=== PATIENT | female | born 1985 | race Caucasian/White ===

== ENCOUNTER 2021-01-23 08:45 | Inpatient (IN) | payer OTHER ==
[~2021-01-23] VITALS: Ht 175.3 cm; Wt 89.1 kg
[2021-01-23] MEDS: LACTATED RINGERS 1,000 ML IV SCH ×2 (09:15→13:22)
[2021-01-23] MEDS ORDERED: METF500T17 PO (09:16)
[2021-01-23] MEDS ORDERED: PREN1TAB60 PO (09:16)
[2021-01-23] MEDS ORDERED: ASPI81TA59 PO (09:16)
[2021-01-23] MEDS ORDERED: D5%-LACTATED RINGERS 1,000 ML IV SCH (09:30)
[2021-01-23] MEDS ORDERED: OXYTOCIN 30U/ 0.9% NaCL 500ML 500 ML IV ONE (09:30)
[2021-01-23] MEDS ORDERED: TERBUTALINE 1 MG/ML, 1ML SQ PRN (09:30)
[2021-01-23] MEDS ORDERED: MISOPROSTOL 25 MCG TABLET VG PRN (09:30)
[2021-01-23] MEDS ORDERED: TERBUTALINE 1 MG/ML, 1ML IVPush PRN (09:30)
[2021-01-23] MEDS ORDERED: FENTANYL PF 100 MCG/2ML IVPush PRN (09:30)
[2021-01-23] MEDS ORDERED: ONDANSETRON 2MG/ML, 2ML IVPush PRN (09:30)
[2021-01-23] MEDS ORDERED: OXYTOCIN 30U/ 0.9% NaCL 500ML 500 ML IV PRN (09:30)
[2021-01-23 09:48] LABS: BASOPHILS % (AUTO) 1 % (0-1); EOSINOPHILS % (AUTO) 1 % (1-7); LYMPHOCYTES % (AUTO) 15 % (22-44); MEAN CORPUSCULAR HEMOGLOBIN 30.4 pg (27.0-34.8); MEAN CORPUSCULAR HGB CONC 33.8 g/dL (32.4-35.8); MEAN PLATELET VOLUME 10.9 fL (7.4-10.4); MONOCYTES % (AUTO) 8 % (2-9); NEUTROPHILS % (AUTO) 76 % (42-75); PLATELET COUNT 140 x10^3/uL (130-400); RED BLOOD COUNT 3.74 x10^6/uL (3.82-5.3); RED CELL DISTRIBUTION WIDTH 12.8 % (9.6-15.2)
[2021-01-23] MEDS ORDERED: NEWBORN KIT ONE (10:41)
[2021-01-23] MEDS ORDERED: LIDOCAINE 1%, 20ML ONE (10:41)
[2021-01-23] MEDS ORDERED: MISOPROSTOL 200 MCG TABLET ONE (10:42)
[2021-01-23] MEDS ORDERED: FENTANYL/BUPIV./NS/PF 250 ML EPIDCONT ONE (13:56)
[2021-01-23] MEDS ORDERED: BUPIVACAINE 0.25% ONE (13:57)
[2021-01-23] MEDS ORDERED: EPHEDRINE 50 MG/ML, 1ML IVPush PRN (14:00)
[2021-01-23] MEDS ORDERED: FENTANYL/BUPIV./NS/PF 250 ML EPIDCONT SCH (14:00)
[2021-01-23] MEDS ORDERED: NALOXONE 0.4 MG/ML, 1ML IVPush PRN (14:00)
[2021-01-23] MEDS ORDERED: LACTATED RINGERS 1,000 ML IVBOLUS PRN (14:00)
[2021-01-23] MEDS ORDERED: LACTATED RINGERS 1,000 ML IV SCH (14:00)
[2021-01-23] MEDS ORDERED: IBUPROFEN 600 MG TABLET ONE (18:57)
[2021-01-23] MEDS: IBUPROFEN 600 MG TABLET PO PRN (19:00)
[2021-01-23] MEDS ORDERED: OXYcodone/APAP 5/325MG TABLET PO PRN ×2 (19:30)
[2021-01-23] MEDS ORDERED: ACETAMINOPHEN 325 MG TABLET PO PRN (19:30)
[2021-01-23] MEDS ORDERED: DOCUSATE 100 MG CAPSULE PO PRN (19:30)
[2021-01-23] MEDS: OXYTOCIN 30U/ 0.9% NaCL 500ML 500 ML IV SCH (19:30)
[2021-01-23] MEDS ORDERED: METHYLERGONOVINE 0.2 MG/ML IM PRN (19:30)
[2021-01-23] MEDS ORDERED: ONDANSETRON 2MG/ML, 2ML IV PRN (19:30)
[2021-01-23] MEDS ORDERED: SIMETHICONE 80 MG CHEW TAB PO PRN (19:30)
[2021-01-23] MEDS ORDERED: MISOPROSTOL 200 MCG TABLET PR PRN (19:30)
[2021-01-23] MEDS ORDERED: CARBOPROST TROMETHAMINE 250 MCG/ML, 1ML IM PRN (19:30)
[2021-01-23] MEDS ORDERED: OXYTOCIN 10 UNITS/ML, 1ML IM PRN (19:30)
[2021-01-23 21:30] VITALS: BP 112/71
[2021-01-24 01:25] VITALS: BP 120/76
[2021-01-24] MEDS: IBUPROFEN 600 MG TABLET PO PRN ×3 (01:43→12:59)
[2021-01-24 03:03] LABS: BASOPHILS % (AUTO) 0 % (0-1); EOSINOPHILS % (AUTO) 1 % (1-7); LYMPHOCYTES % (AUTO) 11 % (22-44); MEAN CORPUSCULAR HEMOGLOBIN 31.2 pg (27.0-34.8); MEAN CORPUSCULAR HGB CONC 34.3 g/dL (32.4-35.8); MEAN PLATELET VOLUME 11.1 fL (7.4-10.4); MONOCYTES % (AUTO) 6 % (2-9); NEUTROPHILS % (AUTO) 83 % (42-75); PLATELET COUNT 134 x10^3/uL (130-400); RED BLOOD COUNT 3.41 x10^6/uL (3.82-5.3); RED CELL DISTRIBUTION WIDTH 13.2 % (9.6-15.2)
[2021-01-24] MEDS: OXYTOCIN 30U/ 0.9% NaCL 500ML 500 ML IV SCH ×2 (05:30→15:30)
[2021-01-24 08:28] VITALS: BP 110/58
[2021-01-24] MEDS ORDERED: PRENATAL VIT/IRON/FA 1 EACH TABLET PO SCH (09:00)
[2021-01-24 12:34] VITALS: BP 114/55
[2021-01-24] MEDS ORDERED: IBUP-1222 PO (16:11)
[2021-01-24] MEDS ORDERED: DOCU-131 PO (16:12)
[2021-01-24] MEDS ORDERED: OXYC1TAB12 PO (16:13)
[2021-01-24 16:41] VITALS: BP 126/85
[2021-03-19] MEDS ORDERED: METF850T10 PO (09:20)
[2021-03-19] MEDS ORDERED: POLY17PO5 PO (09:20)
[2021-03-19] MEDS ORDERED: magnesium citrate PO (09:20)
[2021-03-19] MEDS ORDERED: L.AC1CAP6 PO (09:20)
[2021-03-19] MEDS ORDERED: PSYL368P33 PO (09:20)
[2021-03-19] MEDS ORDERED: SENN1TAB68 PO (09:20)
[2021-03-19] MEDS ORDERED: TRIA15CR53 TP (09:20)
[2021-03-19] MEDS ORDERED: sunflower lecithin PO (09:20)
== END 2021-01-24 18:44 | disposition home or self-care (01) | DRG 807 ==
LOC: LDIP 09:05 → 2NE 21:00 → 2NW 01-24 05:21
PROVIDERS: ADMIT Obstetrics & Gynecology; ATTEND Obstetrics & Gynecology
PROC: 10E0XZZ Delivery of Products of Conception, External Approach (ICD-10-PCS; principal; 2021-01-23)
PROC: 3E033VJ Introduction of Other Hormone into Peripheral Vein, Percutaneous Approach (ICD-10-PCS; 2021-01-23)
PROC: 3E0P7VZ Introduction of Hormone into Female Reproductive, Via Natural or Artificial Opening (ICD-10-PCS; 2021-01-23)
PROC: 10907ZC Drainage of Amniotic Fluid, Therapeutic from Products of Conception, Via Natural or Artificial Opening (ICD-10-PCS; 2021-01-23)
DX: O76 Abnormality in fetal heart rate and rhythm complicating labor and delivery (principal); Z37.0 Single live birth; O75.89 Other specified complications of labor and delivery; Z20.822 Contact with and (suspected) exposure to COVID-19; E28.2 Polycystic ovarian syndrome; Q97 Other sex chromosome abnormalities, female phenotype, not elsewhere classified; Z3A.39 39 weeks gestation of pregnancy; Z90.49 Acquired absence of other specified parts of digestive tract
CPT/HCPCS: 36415; 85025; 86592; 86850; 86900; 87635; G0378; J2405; J2590; J7120

== ENCOUNTER → 2021-03-19 | Outpatient (CLI) | payer OTHER ==
[~2021-03-19] MED LIST: ASPI81TA59 PO; DOCU-131 PO; IBUP-1222 PO; L.AC1CAP6 PO; METF500T17 PO; METF850T10 PO; OXYC1TAB14 PO; POLY17PO5 PO; PREN1TAB60 PO; PSYL368P33 PO; SENN1TAB68 PO; TRIA15CR53 TP; magnesium citrate PO; sunflower lecithin PO
[2021-03-19 09:42] LABS: BASOPHILS % (AUTO) 1 % (0-1); EOSINOPHILS % (AUTO) 3 % (1-7); LYMPHOCYTES % (AUTO) 26 % (22-44); MEAN CORPUSCULAR HEMOGLOBIN 29.5 pg (27.0-34.8); MEAN CORPUSCULAR HGB CONC 33.2 g/dL (32.4-35.8); MEAN PLATELET VOLUME 9.7 fL (7.4-10.4); MONOCYTES % (AUTO) 7 % (2-9); NEUTROPHILS % (AUTO) 63 % (42-75); PLATELET COUNT 217 x10^3/uL (130-400); RED BLOOD COUNT 4.71 x10^6/uL (3.82-5.3); RED CELL DISTRIBUTION WIDTH 13.5 % (9.6-15.2)
[2021-03-19 09:54] LABS: ANION GAP 5 mmol/L (5-15); CALCIUM 10.1 mg/dL (8.5-10.1); CHLORIDE 106 mmol/L (98-107); CREATININE 0.93 mg/dL (0.55-1.02)
== END | disposition home or self-care (01) ==
LOC: STAR 08:52
PROVIDERS: ATTEND Obstetrics & Gynecology
DX: Z01.818 Encounter for other preprocedural examination (principal)
CPT/HCPCS: 36415; 80048; 84703; 85025

== ENCOUNTER 2021-03-26 07:10 | Day surgery (SDC) | payer OTHER ==
[~2021-03-26] VITALS: Ht 175.3 cm; Wt 77.5 kg
[~2021-03-26 07:10] MED LIST changes: +OXYC1TAB12 PO; -OXYC1TAB14 PO
[2021-03-26] MEDS ORDERED: BUPIVACAINE/PF 0.25% ONE (07:11)
[2021-03-26] MEDS ORDERED: EPINEPHRINE 1 MG/ML, 1ML ONE (07:12)
[2021-03-26 07:55] VITALS: BP 111/79
[2021-03-26] MEDS ORDERED: CHLORHEXIDINE 15 ML UDC PO ONE (08:00)
[2021-03-26] MEDS ORDERED: LACTATED RINGERS 1,000 ML IV SCH (08:00)
[2021-03-26 08:17] LABS: HCG UR SG 1.023 (1.003-1.030)
[2021-03-26] MEDS ORDERED: MIDAZOLAM 1 MG/ML, 2ML ONE (08:44)
[2021-03-26] MEDS ORDERED: FENTANYL PF 100 MCG/2ML ONE ×2 (08:45→09:28)
[2021-03-26] MEDS ORDERED: PROPOFOL 100 ML ONE (09:03)
[2021-03-26] MEDS ORDERED: FENTANYL PF 100 MCG/2ML IV PRN (09:30)
[2021-03-26] MEDS ORDERED: PROMETHAZINE 25 MG/ML, 1ML IVPush PRN (09:30)
[2021-03-26] MEDS ORDERED: PROMETHAZINE 25 MG SUPP PR PRN (09:30)
[2021-03-26] MEDS ORDERED: MEPERIDINE/PF 25MG/0.5ML IVPush PRN (09:30)
[2021-03-26] MEDS ORDERED: HALOPERIDOL 5 MG/ML IV PRN (09:30)
[2021-03-26] MEDS ORDERED: METHOCARBAMOL 1,000 MG in DEXTROSE 5% 100 ML IV PRN (09:30)
[2021-03-26] MEDS ORDERED: OXYcodone 5 MG/5 ML ORAL.SOL UDC PO PRN (09:30)
[2021-03-26] MEDS ORDERED: DIPHENHYDRAMINE 50 MG/ML, 1ML IVPush PRN (09:30)
[2021-03-26] MEDS ORDERED: HYDROmorphone 1 MG/ML, 1ML INJ IVPush PRN (09:30)
[2021-03-26] MEDS ORDERED: LORazepam 2 MG/ML, 1ML IVPush PRN (09:30)
[2021-03-26] MEDS ORDERED: ONDANSETRON 2MG/ML, 2ML IVPush ONE (09:30)
[2021-03-26] MEDS ORDERED: ACETAMINOPHEN 325 MG TABLET PO PRN (09:30)
[2021-03-26] MEDS ORDERED: KETOROLAC 30 MG/1 ML ONE (09:36)
[2021-03-26] MEDS ORDERED: DEXAMETHASONE 4 MG/ML, 1ML ONE (09:36)
[2021-03-26] MEDS ORDERED: CEFAZOLIN 1,000 MG ONE (09:36)
[2021-03-26] MEDS ORDERED: NEOSTIGMINE 1 MG/ML, 10ML ONE (09:37)
[2021-03-26] MEDS ORDERED: SUCCINYLCHOLINE 20 MG/ML, 10ML ONE (09:37)
[2021-03-26] MEDS ORDERED: ONDANSETRON 2MG/ML, 2ML ONE (09:37)
[2021-03-26] MEDS ORDERED: GLYCOPYRROLATE 0.2MG/1ML, 5ML ONE (09:37)
[2021-03-26] MEDS ORDERED: PROPOFOL 10 MG/ML, 20ML ONE (09:37)
[2021-03-26] MEDS ORDERED: ROCURONIUM 10MG/ML,5ML ONE (09:37)
[2021-03-26] MEDS ORDERED: SILVER NITRATE STICK TP ONE (10:30)
== END 2021-03-26 11:30 | disposition home or self-care (01) ==
LOC: OUT 07:10
PROVIDERS: ATTEND Obstetrics & Gynecology
DX: Z30.2 Encounter for sterilization (principal); N83.8 Other noninflammatory disorders of ovary, fallopian tube and broad ligament; Z79.84 Long term (current) use of oral hypoglycemic drugs; Z79.899 Other long term (current) drug therapy; Z90.49 Acquired absence of other specified parts of digestive tract; Z98.890 Other specified postprocedural states
CPT/HCPCS: 36415; 58670; 81025; 86850; 86900; 88302; J0171; J0690; J1100; J1885; J2250; J2405; J2704; J2710; J3010; J7120; J0330